=== PATIENT | female | born 1995 | race American Indian/Alaskan Native ===

== ENCOUNTER 2019-04-09 06:33 | Emergency (ER) | payer SELFPAY ==
[2019-04-09 06:41] VITALS: BP 107/65
--- NOTE | 2019-04-09 07:57 | Emergency Department Report ---
ED General Adult HPI - General Chief complaint: Pain General Stated complaint: BODY PAIN Time Seen by Provider: 04/09/19 07:14 Source: patient, EMS Mode of arrival: Wheelchair Limitations: No Limitations - History of Present Illness Initial comments: This is a 24-year-old after Citizen [place] female who presents to the emergency room with back pain radiating into bilateral lower extremity. Past medical history of sciatica. Patient states symptoms initially started with bilateral lower extremity chart shooting pain a few days ago. Patient reports symptoms increased last night with pain radiating from her neck to bilateral lower extremities. Patient states she had difficulty walking. She had to call EMS for transport. She denies swelling, erythema, warmth to the area, bruising, paresthesias, weakness, or changes in urinary or bowel pattern. -: Last night Location: back Radiation: extremity Severity scale (0 -10): 10 Quality: sharp Consistency: constant Improves with: none Worsens with: movement Associated Symptoms: denies other symptoms Treatments Prior to Arrival: NSAID - Related Data Previous Rx's Medication Instructions Recorded Last Taken Type Naproxen [Naprosyn] 500 mg PO BID PRN #20 tablet 04/09/19 Unknown Rx methOCARBAMOL [Robaxin TAB] 500 mg PO BID PRN #15 tab 04/09/19 Unknown Rx Allergies Allergy/AdvReac Type Severity Reaction Status Date / Time Penicillins AdvReac Unknown Verified 04/09/19 06:40 ED Review of Systems ROS: Stated complaint: BODY PAIN Other details as noted in HPI Constitutional: denies: chills, fever Respiratory: denies: cough, shortness of breath, wheezing Cardiovascular: denies: chest pain, palpitations Gastrointestinal: denies: abdominal pain, nausea, diarrhea Genitourinary: denies: urgency, dysuria, discharge Musculoskeletal: back pain, arthralgia (posterior neck pain). denies: joint swelling Skin: denies: rash, lesions Neurological: denies: headache, weakness, paresthesias Psychiatric: denies: anxiety, depression ED Past Medical Hx - Past Medical History Previous Medical History?: Yes Additional medical history: Sciaticia - Surgical History Past Surgical History?: Yes Additional Surgical History: Hernia repair as child - Social History Smoking Status: Never Smoker Substance Use Type: Marijuana - Medications Home Medications: Home Medications Medication Instructions Recorded Confirmed Last Taken Type Naproxen [Naprosyn] 500 mg PO BID PRN #20 tablet 04/09/19 Unknown Rx methOCARBAMOL [Robaxin TAB] 500 mg PO BID PRN #15 tab 04/09/19 Unknown Rx ED Physical Exam - General Limitations: No Limitations General appearance: alert, in no apparent distress - Neck Neck exam: Present: tenderness (along C3 through C5 no erythema or swelling), full ROM. Absent: meningismus, lymphadenopathy - Respiratory Respiratory exam: Present: normal lung sounds bilaterally. Absent: respiratory distress - Cardiovascular Cardiovascular Exam: Present: regular rate, normal rhythm. Absent: systolic murmur, diastolic murmur, rubs, gallop - GI/Abdominal GI/Abdominal exam: Present: soft, normal bowel sounds. Absent: distended, tenderness, guarding, rebound, rigid - Back Exam Back exam: Present: full ROM (painful), paraspinal tenderness, other (positive straight leg test bilaterally) - Neurological Exam Neurological exam: Present: alert, oriented X3 - Psychiatric Psychiatric exam: Present: normal affect, normal mood - Skin Skin exam: Present: warm, dry, intact, normal color. Absent: rash ED Course Vital Signs 04/09/19 06:37 Temperature 98.1 F Pulse Rate 79 Respiratory 18 Rate Blood Pressure 107/65 O2 Sat by Pulse 100 Oximetry ED Medical Decision Making - Radiology Data Radiology results: report reviewed AP and lateral views of the cervical spine INDICATION / CLINICAL INFORMATION: neck pain. COMPARISON: None available. FINDINGS: BONES/JOINT(S): No vertebral fracture. No significant degenerative changes. , Alignment and bone mineralization. SOFT TISSUES: No significant abnormality. Impression entails spine: Mild thoracolumbar scoliosis is seen. No fractures or subluxation are noted. Disc spaces are maintained. - Medical Decision Making Patient was examined by me. Vitals are normal and patient is in no acute distress. Given norco once while in ER. Obtained a urine hCG, x-rays of L- spine, and C-spine. Negative test. X-rays dictated by radiologist and no acute findings. Patient will be treated for sciatica with muscle relaxers and NSAIDs. Referral to Orthopedic for follow up. Plan discussed with patient to discharge home and treat outpatient. Patient discharged home in stable condition. Follow up with PCP in 2-3 days. Critical care attestation.: If time is entered above; I have spent that time in minutes in the direct care of this critically ill patient, excluding procedure time. ED Disposition Clinical Impression: Low back pain Qualifiers: Chronicity: acute Back pain laterality: bilateral Sciatica presence: with sciatica Sciatica laterality: bilateral sciatica Qualified Code(s): M54.42 - Lumbago with sciatica, left side; M54.41 - Lumbago with sciatica, right side Sciatica Qualifiers: Laterality: bilateral Qualified Code(s): M54.31 - Sciatica, right side; M54.32 - Sciatica, left side Cervical muscle strain Qualifiers: Encounter type: initial encounter Qualified Code(s): S16.1XXA - Strain of muscle, fascia and tendon at neck level, initial encounter Disposition: TO HOME OR SELFCARE Is pt being admited?: No Does the pt Need Aspirin: No Condition: Stable Instructions: Muscle Strain (ED), Lumbar Radiculopathy (ED), Sciatica (ED) Additional Instructions: Rest Use ice or heat on affected area for 20 minutes and off for 2 hours. Take pain medication as needed for pain. Don't drive or operate heavy machinery while taking muscle relaxers because they may cause drowsiness. Follow up with Primary Care Provider in 2-3 days. Prescriptions: Naproxen [Naprosyn] 500 mg PO BID PRN #20 tablet PRN Reason: Pain , Severe (7-10) methOCARBAMOL [Robaxin TAB] 500 mg PO BID PRN #15 tab PRN Reason: Muscle Spasm [facility] [Primary Care Provider] - 3-5 Days [facility] [Provider Group] - 3-5 Days LIZ CARMICHAEL MD [Staff Physician] - 3-5 Days [facility] [Outside] - 3-5 Days [facility] [Outside] - 3-5 Days Time of Disposition: 10:14
[2019-04-09 08:50] LABS: HCG Qualitative,Urine Negative (Negative)
--- NOTE | 2019-04-09 09:43 | XRay Report ---
AP and lateral views of the cervical spine INDICATION / CLINICAL INFORMATION: neck pain. COMPARISON: None available. FINDINGS: BONES/JOINT(S): No vertebral fracture. No significant degenerative changes. , Alignment and bone mine ralization. SOFT TISSUES: No significant abnormality. ADDITIONAL FINDINGS: None. Signer Name: Dariel Estrada MD Signed: 04/09/2019 9:39 AM Workstation Name: [id number]
--- NOTE | 2019-04-09 09:44 | XRay Report ---
Lumbar spine 3 views 0924 INDICATION: Low back pain since epidural injection in 2017 Mild thoracolumbar scoliosis is seen. No fractures or subluxation are noted. Disc spaces are maintain ed. Signer Name: Sheldon Monroy MD Signed: 04/09/2019 9:40 AM Workstation Name: [id number]
[2019-04-09] MEDS ORDERED: NORCO 5/325 PO ONE (10:11)
== END 2019-04-09 10:21 | disposition home or self-care (01) ==
LOC: ED 06:33
DX: S16.1XXA Strain of muscle, fascia and tendon at neck level, initial encounter (principal); M54.41 Lumbago with sciatica, right side; M54.42 Lumbago with sciatica, left side; F17.200 Nicotine dependence, unspecified, uncomplicated; Z88.0 Allergy status to penicillin; Z98.890 Other specified postprocedural states; X58.XXXA Exposure to other specified factors, initial encounter; Y93.89 Activity, other specified; Y92.89 Other specified places as the place of occurrence of the external cause; Y99.8 Other external cause status
CPT/HCPCS: 72040; 72100; 81025; 99284

== ENCOUNTER 2019-04-15 09:10 | Emergency (ER) | payer SELFPAY ==
[2019-04-15 09:23] VITALS: BP 110/71
[2019-04-15 09:52] LABS: Bilirubin,Urine NEG (Negative); Blood,Urine SM (Negative); Color,Urine Yellow (Yellow); Mucus,Urine FEW /HPF; Protein,Urine <15 mg/dL mg/dL (Negative); Urobilinogen,Urine < 2.0 mg/dL (<2.0)
[2019-04-15 10:00] LABS: HCG Qualitative,Urine Negative (Negative)
--- NOTE | 2019-04-15 10:59 | Emergency Department Report ---
ED Female HPI - General Chief complaint: Vaginal Bleeding Stated complaint: IRREGULAR BLEEDING/ABD/VAGINA PAIN Time Seen by Provider: 04/15/19 10:54 Source: patient Mode of arrival: Ambulatory Limitations: No Limitations - History of Present Illness Initial comments: Mrs. Montano's pelvic pain and irregular vaginal bleeding with discharge for several weeks. She desires a Pap smear. Mild pelvic cramping and intermittent. SHe thinks she has a bacterial infection. Complaint: vaginal discharge, pelvic pain -: Gradual, week(s) (several) Severity: mild Quality: cramping Consistency: intermittent Are you Now?: No Associated Symptoms: vaginal discharge - Related Data Previous Rx's Medication Instructions Recorded Last Taken Type Naproxen [Naprosyn] 500 mg PO BID PRN #20 tablet 04/09/19 Unknown Rx methOCARBAMOL [Robaxin TAB] 500 mg PO BID PRN #15 tab 04/09/19 Unknown Rx Fluconazole [Diflucan TAB] 150 mg PO ONCE #1 tablet 04/15/19 Unknown Rx metroNIDAZOLE [Flagyl TAB] 500 mg PO Q12HR 7 Days #14 tab 04/15/19 Unknown Rx Allergies Allergy/AdvReac Type Severity Reaction Status Date / Time Penicillins AdvReac Unknown Verified 04/09/19 06:40 ED Review of Systems ROS: Stated complaint: IRREGULAR BLEEDING/ABD/VAGINA PAIN Other details as noted in HPI Comment: All other systems reviewed and negative Constitutional: denies: fever, malaise Respiratory: denies: cough Cardiovascular: denies: chest pain ED Past Medical Hx - Past Medical History Previous Medical History?: No Additional medical history: Sciaticia - Surgical History Past Surgical History?: No Additional Surgical History: Hernia repair as child - Social History Smoking Status: Never Smoker Substance Use Type: Marijuana - Medications Home Medications: Home Medications Medication Instructions Recorded Confirmed Last Taken Type Naproxen [Naprosyn] 500 mg PO BID PRN #20 tablet 04/09/19 Unknown Rx methOCARBAMOL [Robaxin TAB] 500 mg PO BID PRN #15 tab 04/09/19 Unknown Rx Fluconazole [Diflucan TAB] 150 mg PO ONCE #1 tablet 04/15/19 Unknown Rx metroNIDAZOLE [Flagyl TAB] 500 mg PO Q12HR 7 Days #14 tab 04/15/19 Unknown Rx ED Physical Exam - General Limitations: No Limitations General appearance: alert, in no apparent distress - Head Head exam: Present: atraumatic, normocephalic - Eye Eye exam: Present: normal appearance - ENT ENT exam: Present: mucous membranes moist - Neck Neck exam: Present: normal inspection, full ROM - Respiratory Respiratory exam: Present: normal lung sounds bilaterally. Absent: respiratory distress, wheezes, rales, rhonchi - Cardiovascular Cardiovascular Exam: Present: regular rate, normal rhythm, normal heart sounds. Absent: systolic murmur, diastolic murmur, rubs, gallop - GI/Abdominal GI/Abdominal exam: Present: soft, normal bowel sounds. Absent: distended, tenderness, guarding, rebound - Extremities Exam Extremities exam: Present: normal inspection - Back Exam Back exam: Present: normal inspection - Neurological Exam Neurological exam: Present: alert, oriented X3 - Psychiatric Psychiatric exam: Present: normal affect, normal mood - Skin Skin exam: Present: warm, dry, intact, normal color. Absent: rash ED Course Vital Signs 04/15/19 09:21 Pulse Rate 76 Respiratory 16 Rate Blood Pressure 110/71 O2 Sat by Pulse 100 Oximetry ED Medical Decision Making - Medical Decision Making Ms. Wick presents with pelvic pain irregular vaginal bleeding and vaginal discharge. Strongly recommend evaluation by [employer]. Will treat for vaginitis. Do not suspect ovarian torsion or ovarian abscess with today's presentation. Vital signs reviewed and stable. Critical care attestation.: If time is entered above; I have spent that time in minutes in the direct care of this critically ill patient, excluding procedure time. ED Disposition Clinical Impression: Pelvic pain, Dysfunctional uterine bleeding, Vaginitis Disposition: TO HOME OR SELFCARE Is pt being admited?: No Does the pt Need Aspirin: No Condition: Stable Instructions: Vaginitis (ED) Prescriptions: Fluconazole [Diflucan TAB] 150 mg PO ONCE #1 tablet metroNIDAZOLE [Flagyl TAB] 500 mg PO Q12HR 7 Days #14 tab Referrals: YASMIN REEDMERRILLANEVAN MD [Primary Care Provider] - 3-5 Days JURGEN SARGENT MD [Staff Physician] - 3-5 Days
== END 2019-04-15 11:05 | disposition home or self-care (01) ==
LOC: ED 09:10
DX: N93.8 Other specified abnormal uterine and vaginal bleeding (principal); N76.0 Acute vaginitis; F12.90 Cannabis use, unspecified, uncomplicated; Z79.899 Other long term (current) drug therapy; Z88.0 Allergy status to penicillin
CPT/HCPCS: 81001; 81025; 99283